=== PATIENT | male | born 1940 | race Caucasian/White ===

== ENCOUNTER 2019-09-26 12:06 | Day surgery (SDC) | payer MEDICARE ==
[~2019-09-26 12:06] MED LIST: BALANCED SALT IRRIGATION SOLUTION 500ML BAG (FOR OR EYE MACHINE) As Ordered ONE; POVIDONE-IODINE 5% OPHTH PREP SOL 30ML As Ordered ONE
[2019-09-26] MEDS ORDERED: LIDOCAINE 3.5 % 1ML OPHTH TOPICAL GEL ONE (12:38)
[2019-09-26] MEDS ORDERED: LIDOCAINE 3.5 % 1ML OPHTH TOPICAL GEL As Ordered ONE (12:38)
[2019-09-26] MEDS ORDERED: POVIDONE-IODINE 5% OPHTH PREP SOL 30ML As Ordered ONE (14:18)
[2019-09-26] MEDS ORDERED: mitoMYcin 0.2 MG/VIAL KIT FOR OPHTHALMIC USE (J7315 PER 0.2MG) As Ordered ONE (14:18)
[2019-09-26] MEDS ORDERED: LIDOCAINE 1% SDV 5ML VIAL As Ordered ONE (14:22)
[2019-09-26] MEDS ORDERED: HEALON DUET PRO(HEALON 10MG/ML 0.55ML & HEALON ENDOCOAT 30MG/ML 0.85ML) As Ordered ONE (14:22)
[2019-09-26] MEDS ORDERED: fentaNYL 100 MCG/2 ML INJECTION (J3010) As Ordered ONE (14:42)
[2019-09-26] MEDS ORDERED: MIDAZOLAM INJ 2MG/2ML VIAL (J2250 PER 1MG) As Ordered ONE (14:42)
[2019-09-26] MEDS ORDERED: acetaZOLAMIDE 500 MG ER CAP As Ordered ONE (15:03)
[2019-09-26] MEDS ORDERED: acetaZOLAMIDE 500 MG ER CAP ONE (15:03)
--- NOTE | 2019-11-24 09:30 | RO ---
DATE OF OPERATION: 09/26/2019 PREOPERATIVE DIAGNOSIS: Open-angled glaucoma, left eye. POSTOPERATIVE DIAGNOSIS: Open-angled glaucoma, left eye. PROCEDURE PERFORMED: Insertion of a XEN ab-interno. ANESTHESIA: Topical sedation. DETAILS OF PROCEDURE: The patient was prepped and draped in the usual fashion. At the 2 o'clock position a stab incision was made to the anterior chamber, and then 1% of non-preserved lidocaine was instilled and viscoelastic was instilled. The eye was re-fixated, and at the 5 o'clock position a 1.8-mm Keratome was used to make a clear corneal, temporal, limbal incision. The eye was fixated with the Vera hook and then the XEN was placed through the incision and through the trabeculum mesh work, and visualized underneath the conjunctiva. The XEN was advanced through the inserted and was in excellent position. When the monitor car operator was removed, the Healon was irrigated out and mitomycin-C was injected subconjunctivally in the area of the XEN implant. The patient tolerated the procedure well, and went to the recovery room in stable condition. ANGLE
== END 2019-09-26 15:20 | disposition home or self-care (01) ==
LOC: M SDC 12:06
PROVIDERS: ATTEND Ophthalmology
DX: H40.1120 Primary open-angle glaucoma, left eye, stage unspecified (principal); E11.9 Type 2 diabetes mellitus without complications; I10 Essential (primary) hypertension; E78.5 Hyperlipidemia, unspecified; Z85.46 Personal history of malignant neoplasm of prostate; Z92.3 Personal history of irradiation; Z79.84 Long term (current) use of oral hypoglycemic drugs; Z79.899 Other long term (current) drug therapy
CPT/HCPCS: 66183; C1783; J2250; J3010; J7315